=== PATIENT | male | born 1955 | race African-American/Black ===

== ENCOUNTER 2016-03-29 09:53 | Inpatient (IN) | payer OTHER ==
[~2016-03-29 09:53] MED LIST: D50W SYRINGE ONE; NARCAN ONE
[2016-03-29] MEDS ORDERED: NS 3,000 ML ONE (10:01)
[2016-03-29] MEDS ORDERED: NS 2,000 ML ONE (10:02)
[2016-03-29] MEDS ORDERED: NARCAN IV ONE (10:05)
[2016-03-29 10:29] LABS: RBC 1.43 XMIL (4.7-6.1)
[2016-03-29 10:30] LABS: BASO% 0.1 % (0.0-0.8); HEMATOCRIT 13.6 % (42.0-52.0); IMM GRAN# 0.04 X1000 (0.0-0.04); IMM GRAN% 0.5 % (0.0-0.5); LYMPH% 9.4 % (20.5-51.1); MANUAL DIFF NEEDED? NO; MCH 29.4 PG (27-31); MCHC 30.9 g/dL (33-37); MCV 95.1 FL (81-99); MONO# 1.29 X1000 (0.11-0.59); MONO% 15.1 % (1.7-9.3); MPV 12.2 FL (7.4-10.4); NEUT% 74.9 % (42.2-75.2); PLT 79 X1000 (130-400)
[2016-03-29 10:32] LABS: HEMOGLOBIN 4.2 g/dL (14.0-18.0)
--- NOTE | 2016-03-29 10:32 | PROVIDER DOCUMENTATION ---
HPI-General Adult - General Chief Complaint: Low Blood Sugar Stated Complaint: hypoglycemia Time Seen by Provider: 03/29/16 10:28 Source: patient, EMS Allergies/Adverse Reactions: Patient Allergies Allergy/AdvReac Type Severity Reaction Status Date / Time No Known Allergies Allergy Verified 01/28/16 14:54 Home Medications: Home Medication List Medication Instructions Recorded Confirmed Last Taken Type Iron Carbonyl/Ascorbic Acid 1 each PO BID #60 tablet 01/16/16 Unknown Rx [Icar-C] Multivitamin with Minerals 1 each PO DAILY #30 capsule 01/16/16 Unknown Rx [Myvitalife] Pantoprazole [Protonix] 40 mg PO BID #60 tablet 01/16/16 Unknown Rx Spironolact/Hydrochlorothiazid 1 each PO DAILY #30 tablet 01/28/16 Unknown Rx [Aldactazide 50-50 Tablet] - History of Present Illness -Gen Adult Nature of Presenting Problems: 61 yo M presents to the ER via EMS after being found unresponsive. FSBS was 28 upon arrival, hypotension. After arriving pt would slightly respond to pain by opening his eyes and looking, but no communication. - Diabetes Related Context Context: reports: low blood sugar, unresponsive Review of Systems - Adult - REVIEW OF SYSTEMS - ADULT ROS:: unobtainable per condition Constitutional: denies: chills, fever Eyes: reports: no symptoms reported Ears, Nose, Mouth & Throat: reports: no symptoms reported Cardiovascular: reports: no symptoms reported Respiratory: reports: no symptoms reported Gastrointestinal: reports: no symptoms reported Genitourinary: reports: no symptoms reported Musculoskeletal: reports: no symptoms reported Integumentary: reports: no symptoms reported Neurological: reports: no symptoms reported Psychiatric: reports: no symptoms reported Endocrine: reports: no symptoms reported Hematologic/Lymphatic: reports: no symptoms reported Allergic/Immunologic: reports: no symptoms reported All Other Systems: Reviewed and Negative Past History - Adult - PAST MEDICAL HISTORY-ADULT Review of Records: reports: Nursing Assessment Review, Medications Reviewed Genitourinary: reports: kidney disease Musculoskeletal: reports: other (MS) Neurological: reports: CVA Other Conditions: reports: MRSA - PRIOR SURGERIES/PROCEDURES Surgical/Procedure History: reports: reviewed, not pertinent, joint replacement , other (skin graft) - IMMUNIZATION STATUS Childhood Immunizations: See Nurse Assessment Flu Vaccine: See Nurse Assessment Physical Exam-General - PHYSICAL EXAM-ADULT Initial Vital Signs Reviewed: Yes - CONSTITUTIONAL General Appearance: other (unresponsive) - EYES Eyes: other (sclera jaundice) - HEAD, EARS, NOSE, MOUTH & THROAT HENMT: normal ENT inspection. negative: moist mucous membranes (dry) - NECK Neck: supple, normal inspection - RESPIRATORY Respiratory: crackles, wheezing - CARDIOVASCULAR Cardiovascular: bradycardia - GASTROINTESTINAL (ABDOMEN) Abdominal Exam: distended. negative: abnormal bowel sounds - SKIN Integumentary: warm/dry, jaundice Progress - PLAN OF CARE/RESULTS Progress/Plan/Lab Results: 1140 - asystole, compressions started Bleeding out of mouth 1254 - after discussion with Dr. Leung family agreed to make pt a DNR level 1, if vital signs deterriorate no ACLS or BLS will be provided Vital Signs Pulse Resp BP Pulse Ox 03/29/16 14:40 80 23 60/33 100 03/29/16 10:38 100 H 22 70/39 100 03/29/16 10:30 109 H 22 62/55 100 03/29/16 09:55 93 H 22 65/36 No Known Allergies Allergy (Verified 01/28/16 14:54) Iron Carbonyl/Ascorbic Acid [Icar-C] 1 each PO BID #60 tablet 01/16/16 Multivitamin with Minerals [Myvitalife] 1 each PO DAILY #30 capsule 01/16/16 Pantoprazole [Protonix] 40 mg PO BID #60 tablet 01/16/16 Spironolact/Hydrochlorothiazid [Aldactazide 50-50 Tablet] 1 each PO DAILY #30 tablet 01/28/16 Laboratory 03/29/16 03/29/16 03/29/16 Unknown Unknown Unknown WBC 8.54 RBC 1.43 L Hgb 4.2 L* Hct 13.6 L MCV 95.1 MCH 29.4 MCHC 30.9 L RDW Std Deviation 19.6 H Plt Count 79 L MPV 12.2 H Immature Gran % (Auto) 0.5 Neut % (Auto) 74.9 Lymph % (Auto) 9.4 L [place] % (Auto) 15.1 H Eos % (Auto) 0.0 Baso % (Auto) 0.1 Immature Gran # (Auto) 0.04 Neut # (Auto) 6.40 Lymph # (Auto) 0.80 L [place] # (Auto) 1.29 H Eos # (Auto) 0.00 Baso # (Auto) 0.01 PT 53.1 H INR 6.10 H* APTT (Factor Assay) 54.9 H Specimen Type Sample Site pH pCO2 pO2 HCO3 Base Excess Oxyhemoglobin ABG O2 Sat (Calculated) ABG O2 Saturation ABG Carboxyhemoglobin ABG Methemoglobin Dilip Test Total Hemoglobin Lactate Blood Gas Modality FiO2 % Sodium Potassium Chloride Carbon Dioxide Anion Gap BUN Creatinine Estimated GFR/1.73 m2 BUN/Creatinine Ratio Glucose Calculated Osmolality Calcium Total Bilirubin AST ALT Alkaline Phosphatase Creatine Kinase Troponin T Total Protein Albumin Globulin Albumin/Globulin Ratio Plasma Lactate Plasma/Serum Ethyl Alc Blood Type Antibody Screen Crossmatch 03/29/16 03/29/16 03/29/16 Unknown Unknown 10:39 WBC RBC Hgb Hct MCV MCH MCHC RDW Std Deviation Plt Count MPV Immature Gran % (Auto) Neut % (Auto) Lymph % (Auto) [place] % (Auto) Eos % (Auto) Baso % (Auto) Immature Gran # (Auto) Neut # (Auto) Lymph # (Auto) [place] # (Auto) Eos # (Auto) Baso # (Auto) PT INR APTT (Factor Assay) Specimen Type Sample Site pH pCO2 pO2 HCO3 Base Excess Oxyhemoglobin ABG O2 Sat (Calculated) ABG O2 Saturation ABG Carboxyhemoglobin ABG Methemoglobin Dilip Test Total Hemoglobin Lactate Blood Gas Modality FiO2 % Sodium 138 Potassium 1.8 L* Chloride 82 L Carbon Dioxide 10 L Anion Gap 46 BUN 18 Creatinine 4.1 H Estimated GFR/1.73 m2 15 BUN/Creatinine Ratio 4 Glucose 118 H Calculated Osmolality 279 Calcium 8.1 L Total Bilirubin 4.70 H AST 351 H ALT 54 H Alkaline Phosphatase 106 Creatine Kinase 170 Troponin T 0.047 Total Protein 5.1 L Albumin 1.5 L Globulin 4.0 Albumin/Globulin Ratio 0.0 Plasma Lactate 31.4 H Plasma/Serum Ethyl Alc Blood Type Antibody Screen Crossmatch 03/29/16 03/29/16 10:12 09:45 WBC RBC Hgb Hct MCV MCH MCHC RDW Std Deviation Plt Count MPV Immature Gran % (Auto) Neut % (Auto) Lymph % (Auto) [place] % (Auto) Eos % (Auto) Baso % (Auto) Immature Gran # (Auto) Neut # (Auto) Lymph # (Auto) [place] # (Auto) Eos # (Auto) Baso # (Auto) PT INR APTT (Factor Assay) Specimen Type ARTERIAL Sample Site R BRACHIAL pH 7.21 L pCO2 25 L pO2 113 H HCO3 12.2 L Base Excess -16.4 L Oxyhemoglobin 95.7 ABG O2 Sat (Calculated) 7.0 L ABG O2 Saturation 100.1 H ABG Carboxyhemoglobin 2.70 H ABG Methemoglobin 1.7 H Dilip Test YES Total Hemoglobin 5.0 L Lactate 20.00 H* Blood Gas Modality CANNULA FiO2 % 36.0 Sodium Potassium Chloride Carbon Dioxide Anion Gap BUN Creatinine Estimated GFR/1.73 m2 BUN/Creatinine Ratio Glucose Calculated Osmolality Calcium Total Bilirubin AST ALT Alkaline Phosphatase Creatine Kinase Troponin T Total Protein Albumin Globulin Albumin/Globulin Ratio Plasma Lactate Plasma/Serum Ethyl Alc Blood Type O POSITIVE Antibody Screen NEGATIVE Crossmatch See Detail Orders Category Date Time Status Cardiac Monitoring DIRECTED Care 03/29/16 10:03 Active Finger Stick Blood Sugar (ED) DIRECTED Care 03/29/16 10:03 Active Oxygen Therapy- ED Nursing DIRECTED Care 03/29/16 10:03 Active Saline Loc NOW Care 03/29/16 10:03 Active CHEST-PORTABLE [RAD] Stat Exams 03/29/16 10:03 Completed ABG [RESP] Routine Lab 03/29/16 09:45 Completed ALCOHOL BLOOD Stat Lab 03/29/16 Completed CBC WITH ELECTRONIC DIFF [HEME] Stat Lab 03/29/16 Completed CK PROFILE [SP CHEM] Stat Lab 03/29/16 Completed COMPREHENSIVE METABOLIC PANEL [CHEM] Stat Lab 03/29/16 Completed LACTATE, PLASMA [CHEM] Stat Lab 03/29/16 10:39 Completed PRBC [LRPC (RED CELLS)] [BBK] Stat Lab 03/29/16 10:12 Results [address]IME WITH INR PL [COAG] Stat Lab 03/29/[address] [COAG] Stat Lab 03/29/16 Completed TROPONIN T Stat Lab 03/29/16 Completed TYPE & SCREEN [BBK] Stat Lab 03/29/16 10:[address] W/POSS RFLX CULT [URINALYSIS] Stat Lab 03/29/16 11:26 Ordered URINE DRUG SCREEN PL Stat Lab 03/29/16 11:26 Ordered 0.9% Sodium Chloride Inj [Ns] 1,000 ml Med 03/29/16 10:01 Discontinued .ROUTE As Directed 0.9% Sodium Chloride Inj [Ns] 1,000 ml Med 03/29/16 10:02 Discontinued .ROUTE As Directed 0.9% Sodium Chloride Inj [Ns] 250 ml Med 03/29/16 11:00 Active Phenylephrine [Shoaib-Synephrine] 50 mg IV As Directed 0.9% Sodium Chloride Inj [Ns] 250 ml Med 03/29/16 10:52 Discontinued .ROUTE As Directed Dextrose 5%-0.45% NaCl Inj [D5 1/2 Ns] 250 ml Med 03/29/16 11:00 Active Norepinephrine [Levophed] 8 mg IV As Directed Dextrose 50% Syringe [D50w Syringe] Med 03/29/16 10:52 Discontinued 50 ml IV NOW ONE Lorazepam [Ativan] Med 03/29/16 12:25 Discontinued 2 mg .ROUTE .STK-MED ONE Naloxone [Narcan] Med 03/29/16 10:05 Discontinued 2 mg IV NOW ONE Phenylephrine [Shoaib-Synephrine] Med 03/29/16 10:52 Discontinued 50 mg .ROUTE .STK-MED ONE Potassium Chloride 20 Meq/Swi 100 ml Med 03/29/16 12:00 Active IV Q2H Potassium Chloride 20 Meq/Swi 100 ml Med 03/29/16 20:00 Active IV Q2H Potassium Chloride 40 Meq/Swi 100 ml Med 03/29/16 11:08 Discontinued .ROUTE As Directed Pulse Oximetry Stat Oth 03/29/16 10:03 Active EKG [EKG] Stat Ther 03/29/16 10:03 Draft - EKG 1 Time of EKG reading by physician:: 10:04 EKG Read and Signed by:: Michael Leung EKG Interpretation (*Must complete 3 of following elements*): Abnormal Rate: 85 Rhythm: sinus rhythm with 1st degree AV block [place]: normal [place] Interval: normal ST Wave: non-specific ST changes (ST & T wave abnormality, consider anterior ischemia) - CONSULTS/PCP/HOSPITALIST Notification #1 *Consult/PCP/Hospitalist*: Dr. Villavicencio Time Discussed: 14:32 Consult Disposition: Admit Procedures - INTUBATION Time of Intubation: 11:55 Airway Evaluation: Copious Secretions Intubation Method: orotracheal Equipment: Glidescope Tube Size (cm): 7.5 Breath Sounds after Intubation: equal ETT Primary Tube Confirmation: Chest Rise and Fall Intubation Complications: no complications Vent Settings: See Respiratory Therapy Notes Departure - Departure Time of Disposition Order: 14:33 DIAGNOSIS: Liver failure Qualifiers: Liver failure chronicity: unspecified chronicity Hepatic coma status: with hepatic coma Qualified Code(s): K72.91 - Hepatic failure, unspecified with coma Disposition: ADMITTED INPATIENT 09 Certified Medical Emergency: Emergent Condition: Critical Referrals: Juan Moreno MD [Primary Care Provider] - Attestation - Scribe Verification/Attestation Scribe:: Josefina Jerez Acting as Scribe for:: Michael Leung Scribe documention review:: This chart was documented by a scribe and accurately reflects the service the provider performed and the decisions made by the provider.
[2016-03-29 10:50] LABS: BLOOD TYPE ARTERIAL; SAMPLE BLOOD
[2016-03-29 10:50] LABS: ALBUMIN 1.5 g/dL (3.5-5.0); CALCIUM 8.1 mg/dL (8.8-10.2); TOTAL BILIRUBIN 4.7 mg/dL (0.20-1.00); TOTAL PROTEIN 5.1 g/dL (6.3-8.3)
[2016-03-29 10:51] LABS: PTT PL 54.9 Seconds (22.6-43.9)
[2016-03-29] MEDS ORDERED: NS 250 ML ONE (10:52)
[2016-03-29] MEDS ORDERED: D50W SYRINGE IV ONE (10:52)
[2016-03-29] MEDS ORDERED: NEO-SYNEPHRINE ONE (10:52)
[2016-03-29 10:54] LABS: BE -16.4 mmoll (-3.0-3.0); PCO2(98.6) 25 mmHg (35-45); PO2(98.6) 113 mmHg (60-100)
[2016-03-29 10:55] LABS: METHB 1.7 % (0.0-1.5); MODALITY CANNULA; SAO2 100.1 % (95.0-100.0)
[2016-03-29 10:56] LABS: DRAW SITE R BRACHIAL
--- NOTE | 2016-03-29 10:56 | EKG Report ---
Test Performed on : 03/29/2016 10:04:31 AM Test Reason : AMS Blood Pressure : / mmHG Vent. Rate : 085 BPM Atrial Rate : 085 BPM P-R Int : 210 ms QRS Dur : 084 ms QT Int : 464 ms P-R-T Axes : 058 -20 011 degrees QTc Int : 552 ms Sinus rhythm. with 1st degree AV block. Inferior infarct , age undetermined ST & T wave abnormality, consider anterior ischemia Prolonged QT Abnormal ECG When compared with ECG of 28-JAN-2016 14:04, Significant changes have occurred Unconfirmed Result
[2016-03-29 10:57] LABS: ALLEN TEST YES
[2016-03-29 10:57] LABS: POTASSIUM 1.8 mmol/L (3.5-5.1)
[2016-03-29 10:59] LABS: pH(98.6) 7.21 (7.35-7.45)
[2016-03-29] MEDS ORDERED: LEVOPHED 8 MG in D5 1/2 NS 250 ML IV SCH ×2 (11:00→16:00)
[2016-03-29] MEDS ORDERED: POTASSIUM CHLORIDE 40 MEQ/SWI 100 ML ONE (11:08)
[2016-03-29 11:21] LABS: INR 6.1 (0.86-1.15); PROTIME 53.1 Seconds (12.1-15.5)
[2016-03-29] MEDS: POTASSIUM CHLORIDE 20 MEQ/SWI 100 ML IV SCH ×2 (12:00→16:51)
[2016-03-29] MEDS ORDERED: ATIVAN ONE (12:25)
--- NOTE | 2016-03-29 13:36 | Diag Imaging Result Document ---
PROCEDURE NAME: CHEST-PORTABLE - 03/29/2016 PORTABLE CHEST: Compared with 01/28/2016. FINDINGS: Allowing for the AP projection, heart size appears within normal limits. The trachea appears to deviate towards the right, but this is likely exaggerated by mild patient rotation towards the right. There are bilateral infiltrates which are most prominent at the perihilar regions, particularly on the left. These may relate to central pulmonary edema. There is no pleural effusion or pneumothorax identified. IMPRESSION: Deviation of the trachea to the right versus artifact from patient rotation. Bilateral central infiltrates which may relate to central pulmonary edema.
[2016-03-29] MEDS ORDERED: NS 1,000 ML IV SCH (15:30)
[2016-03-29] MEDS ORDERED: NS 500 ML IV ONE ×2 (16:25→17:54)
[2016-03-29] MEDS ORDERED: SODIUM BICARBONATE 8.4% IV ONE (16:27)
[2016-03-29] MEDS ORDERED: PITRESSIN 40 UNIT in NS 100 ML IV PRN (16:30)
[2016-03-29] MEDS ORDERED: SOLU-CORTEF IV SCH (16:30)
[2016-03-29] MEDS: NEO-SYNEPHRINE 50 MG in NS 250 ML IV SCH ×2 (16:34→19:06)
[2016-03-29] MEDS ORDERED: EPINEPHRINE SYRINGE ONE (16:47)
[2016-03-29] MEDS ORDERED: VITAMIN K 10 MG in NS 50 ML IV ONE (17:00)
[2016-03-29 17:41] LABS: HEMATOCRIT 19.2 % (42.0-52.0)
[2016-03-29 18:35] VITALS: BP 45/29
[2016-03-29] MEDS ORDERED: POTASSIUM CHLORIDE 20 MEQ/SWI 100 ML IV SCH (20:00)
--- NOTE | 2016-03-29 22:36 | HISTORY AND PHYSICAL ---
CHIEF COMPLAINT: Altered mental status emesis and bloody emesis, reportedly hypoglycemia. HISTORY OF PRESENT ILLNESS: The patient is 61 years old. He was found unresponsive at home. Blood sugar was 28. He was also hypotensive. He was responding somewhat to pain but no communication. He coded around 11:40. CPR compressions he had noted blood out of his mouth, 12:54 was made a DNR. At that point, he was placed on pressors including Shoaib-Synephrine and Levophed only to maintain a blood pressure in the 60s. Patient apparently has cirrhosis and fairly poorly compliant. He was last here in December with alcoholic liver disease. Continued alcohol use and type 2 diabetes. The patient is actively dying. Initial hemoglobin and hematocrit were 4 and 15. He was given 3 units of blood but has had persistent bloody bowel movements. The family decided not to further escalate care. As he was too unstable to transfer, he was admitted here at [facility]. Clinically, it was not felt that he was stable enough for any surgical intervention or endoscopic intervention. I do not think he would tolerate anything at this point, so GI or Surgery has not been consulted. Family is aware of his active demise. PAST MEDICAL HISTORY: Again, previous chronic renal failure, alcoholic liver disease with cirrhosis, type 2 diabetes, GERD, CVA. PAST SURGICAL HISTORY: He has had skin graft, bilateral TKA. SOCIAL HISTORY: Pack-a-day smoker. He drank previously a pint of vodka a day. FAMILY HISTORY: Reviewed and noncontributory. ALLERGIES: No known drug allergies. MEDICATIONS: By report, iron, multivitamin, Protonix, and spironolactone/hydrochlorothiazide. REVIEW OF SYSTEMS: Otherwise unobtainable. PHYSICAL EXAMINATION: VITAL SIGNS: Last recorded blood pressure I saw was 45/29 and that is on 3 pressors at maximum dose, O2 saturation 74%, heart rate 78. GENERAL: Thin male in acute distress, unresponsive. HEENT: Head exam was normocephalic, atraumatic. Eyes exam: Pupils were dilated. I believe he may have had atropine during the code. ET tube in place. He was pale, diaphoretic. NECK: Supple. CARDIOVASCULAR: Exam was stable. PULMONARY: Decreased breath sounds. GASTROINTESTINAL: He was soft, distended. EXTREMITIES: No clubbing or cyanosis. LYMPHATICS: No peripheral edema. NEUROLOGICAL: Exam is nonfocal. LABORATORY DATA: Most recent hemoglobin and hematocrit were 6 and 19, that was this evening, and his early one was 4 and 13. In January, he was 11 and 32. Chemistries: His creatinine is up to 4.1, potassium is 1.8, T bilirubin 4.7. Blood gas: pH 7.2, pCO2 25, PO2 113. INR was 6 and was previously 1.4. He has no urine output. PROBLEM LIST: Gastrointestinal bleed with persistent essentially exsanguination in the setting of cirrhosis and coagulopathy. Unfortunately, patient was not stable enough to transfer. He is on 3 pressors. Family understands that his demise is eminent and have elected to do DNR and not further escalation of care. I am not giving him any more blood products at this point. I think, unfortunately, his clinical situation in the setting of cirrhosis, renal failure and an active uncontrollable GI bleed is a terminal event. Surgical intervention at this time he would likely during the procedure and would not be safe to transfer. The family is aware of his poor prognosis and understand that every measure was taken to sustain him and unfortunately he had a terminal event with the exsanguination likely from an upper GI bleed source. I am suspicious of a variceal bleed in the setting of significant coagulopathy and obviously decompensated liver failure. CRITICAL CARE TIME: Above 30 minutes. PLAN: He is currently on vasopressin at maximum dose, Shoaib-Synephrine at maximum dose, and Levophed at maximum dose. He was also placed on stress dose steroids. He was given 10 mg of vitamin K. I ordered another unit of blood and 2 units of FFP. However, patient lost his pulse prior to this was given and I elected to not give him any further blood products as I feel that he will not be able to sustain that. is imminent.
[2016-03-30 07:33] LABS: LACTATE > 20.00 mmoll (0.44-2.22)
--- NOTE | 2016-03-30 15:17 | PROGRESS NOTE ---
DATE: 03/29/2016 ADVANCED CARE PLANNING: This is a 61-year-old male who was admitted to ICU 1 today after he presented to the emergency room with a hemoglobin of 4.2, hematocrit 13.6, potassium 1.8, creatinine 4.1. He had rectal bleeding from his cirrhosis and he was placed on the ventilator by ER physician. The patient is currently on vasopressin, Shoaib-Synephrine on a max dose. His blood pressure is 45/38 on all of these medications. O2 saturation on the ventilator between 78 and 86%. Heart rate in the 70s. Discussed patient's overall poor prognosis with family members and his son. They verbalized understanding. We discussed the addition of the last blood pressure medication of vasopressin as basically the last effort to try the raise his blood pressure. Attending at bedside at this time. The family wants to try the vasopressin. The patient remains a DNR and overall prognosis is poor. Time spent on advanced care planning was 30 minute. Dictated by ETHAN Medina for Arvind Villavicencio MD
--- NOTE | 2016-04-22 13:17 | DISCHARGE SUMMARY ---
ADMISSION DATE: 03/29/2016 DISCHARGE DATE: 03/29/2016 SUMMARY: FINAL DIAGNOSES: 1. Acute hemorrhagic shock from profound GI bleed. Likely variceal in the setting of cirrhosis and coagulopathy. 2. Symptomatic anemia with persistent hypotension. 3. Acute kidney injury, possibly due to hepatorenal syndrome. HISTORY AND HOSPITAL COURSE: Briefly, this is a 61-year-old male with significant cirrhosis history, found unresponsive. Initially thought to be hypoglycemic. He lost pulse around 11:40 and CPR had to be initiated. He was placed on Levophed for blood pressure control. Patient was evaluated in the ER. Initially thought that he was not going to survive. Coming out of the ER, he was given several units of blood. Continued to clinically deteriorate. We were not able to get very good blood pressure. He was transitioned to the ICU because he had been observed down in the ER for about 7-8 hours and resuscitated, but when he got to the unit, he had pulse, but intermittent. Then finally was pulseless. The family had decided though prior that they did not want to further escalate the care as he was terminal from his cirrhosis standpoint, and he was not likely to clinically improve and he was bleeding out and unable to sustain a decent blood pressure or be amenable to any surgical treatment. He was not stable enough to transfer. Patient was maxed out on vasopressin and Shoaib-Synephrine. He was given further vitamin K. We attempted to give him some FFP, but his blood pressure continued to deteriorate and finally patient passed. The family aware, at the bedside. He had been made a DNR. His repeat hemoglobin and hematocrit after blood was still 4 and 13. His INR was elevated at 6.1. The patient . TIME OF : He was removed from the vent around 1954, I think 2052 was when he was pronounced.
== END 2016-03-29 22:34 | disposition expired | DRG 432 ==
LOC: P.ED 09:53 → P.ICU 15:10
PROVIDERS: ATTEND Internal Medicine
PROC: 5A1935Z Respiratory Ventilation, Less than 24 Consecutive Hours (ICD-10-PCS; principal; 2016-03-29)
PROC: 0BH17EZ Insertion of Endotracheal Airway into Trachea, Via Natural or Artificial Opening (ICD-10-PCS; 2016-03-29)
PROC: 5A12012 Performance of Cardiac Output, Single, Manual (ICD-10-PCS; 2016-03-29)
PROC: 30233N1 Transfusion of Nonautologous Red Blood Cells into Peripheral Vein, Percutaneous Approach (ICD-10-PCS; 2016-03-29)
DX: K70.30 Alcoholic cirrhosis of liver without ascites (principal); K76.7 Hepatorenal syndrome; R57.8 Other shock; K92.0 Hematemesis; D68.4 Acquired coagulation factor deficiency; E11.22 Type 2 diabetes mellitus with diabetic chronic kidney disease; E11.649 Type 2 diabetes mellitus with hypoglycemia without coma; N18.9 Chronic kidney disease, unspecified; D64.9 Anemia, unspecified; K21.9 Gastro-esophageal reflux disease without esophagitis; F17.210 Nicotine dependence, cigarettes, uncomplicated; Z66 Do not resuscitate; Z79.899 Other long term (current) drug therapy; Z86.73 Personal history of transient ischemic attack (TIA), and cerebral infarction without residual deficits; Z96.653 Presence of artificial knee joint, bilateral
CPT/HCPCS: 36415; 36430; 51702; 71010; 80053; 82550; 82805; 82948; 83605; 84484; 85014; 85018; 85025; 85610; 85730; 86850; 86900; 86901; 86920; 92950; 93005; 94660; 94761; 96365; 96366; 96368; 96375; G0480; J0171; J1720; J2060; J2310; J2370; J3430; J3480; J7030; J7050; P9016; 80320; 99285-25